=== PATIENT | male | born 1975 | race Caucasian/White ===

== ENCOUNTER 2016-11-18 09:42 | Emergency (ER) | payer OTHER, MEDICARE ==
[~2016-11-18] VITALS: Ht 188 cm; Wt 125.2 kg
[~2016-11-18 09:42] MED LIST: COLA100C2; PERC7.5T8; THERGRAN; VITA500T; ZINC220T2
[2016-11-18 09:43] VITALS: BP 156/83
[2016-11-18] MEDS ORDERED: IBUP600T26 PO (10:07)
[2016-11-18] MEDS ORDERED: SERO50TA PO (10:07)
[2016-11-18] MEDS ORDERED: BUPR1TAB56 PO (10:07)
[2016-11-18] MEDS ORDERED: SERO1TAB PO (10:07)
[2016-11-18] MEDS ORDERED: GABA600T PO (10:07)
[2016-11-18] MEDS ORDERED: IBUPROFEN 800 MG TAB PO ONE (10:30)
[2016-11-18] MEDS ORDERED: CLINDAMYCIN 150 MG CAP PO ONE (10:30)
[2016-11-18] MEDS ORDERED: TERB1CRE8 EX (10:34)
[2016-11-18] MEDS ORDERED: CLIN1CAP5 PO (10:36)
[2016-11-18] MEDS ORDERED: CLOTCRE3 TOP (10:47)
== END 2016-11-18 10:59 | disposition home or self-care (01) ==
LOC: M ED 10:21
DX: B35.3 Tinea pedis (principal); L08.9 Local infection of the skin and subcutaneous tissue, unspecified; M54.9 Dorsalgia, unspecified; F32.9 Major depressive disorder, single episode, unspecified; F41.9 Anxiety disorder, unspecified; Z79.899 Other long term (current) drug therapy

== ENCOUNTER 2023-03-23 07:31 | Emergency (ER) | payer OTHER, MEDICARE ==
[~2023-03-23] VITALS: Ht 188 cm; Wt 123.0 kg
[2023-03-23 07:31] VITALS: TEMP 98; O2SAT 97
[~2023-03-23 07:31] MED LIST changes: +BUPR1TAB56 PO; +CLIN150C17 PO; +CLOTCRE3 TOP; +EQ A1CRE3 EX; +GABA600T4 PO; +IBUP-1022 PO; +SERO1TAB PO; +SERO50TA PO
[2023-03-23] MEDS ORDERED: PROPARACAINE 0.5% OPHTH SOL 15ML OD ONE (08:35)
[2023-03-23] MEDS ORDERED: FLUORESCEIN OPHTH 1MG STRIP OD ONE (08:35)
[2023-03-23] MEDS ORDERED: PROPARACAINE 0.5% OPHTH SOL 15ML OS ONE (08:45)
[2023-03-23] MEDS ORDERED: FLUORESCEIN OPHTH 1MG STRIP OS ONE (08:45)
[2023-03-23] MEDS ORDERED: CIPR0.3S37 OP (10:23)
[2023-03-23 11:34] VITALS: BP 110/75
== END 2023-03-23 11:37 | disposition home or self-care (01) ==
LOC: M ED 07:31
DX: S05.01XA Injury of conjunctiva and corneal abrasion without foreign body, right eye, initial encounter (principal); T15.01XA Foreign body in cornea, right eye, initial encounter; X58.XXXA Exposure to other specified factors, initial encounter; Y92.89 Other specified places as the place of occurrence of the external cause; Y93.89 Activity, other specified; Y99.8 Other external cause status; F17.200 Nicotine dependence, unspecified, uncomplicated; Z79.899 Other long term (current) drug therapy

== ENCOUNTER 2023-04-05 12:39 | Emergency (ER) | payer OTHER, MEDICARE ==
[~2023-04-05] VITALS: Ht 188 cm; Wt 128.9 kg
[~2023-04-05 12:39] MED LIST changes: +CIPR0.3S37 OP
[2023-04-05 12:41] VITALS: BP 128/83; TEMP 98.6; O2SAT 98
== END 2023-04-05 14:53 | disposition home or self-care (01) ==
LOC: M ED 12:39
DX: S89.91XA Unspecified injury of right lower leg, initial encounter (principal); V29.09 Motorcycle driver injured in collision with other motor vehicles in nontraffic accident; Y92.524 Gas station as the place of occurrence of the external cause; Y93.89 Activity, other specified; Y99.8 Other external cause status; I10 Essential (primary) hypertension; G62.9 Polyneuropathy, unspecified; Z79.899 Other long term (current) drug therapy